=== PATIENT | male | born 1965 | race Caucasian/White ===

== ENCOUNTER 2017-12-31 14:06 | Emergency (ER) | payer OTHER ==
[~2017-12-31] VITALS: Ht 177.8 cm; Wt 99.8 kg
[~2017-12-31 14:06] MED LIST: ALBU90OI INH; AMOX500 PO; CEPH500 PO; CODGUAEL PO; DOXY100 PO; ERYT.5TO OD; HYDACE5 PO; IBUP200; LISI20 PO; METR500 PO; OXYACE5T PO; PENVK250 PO; PENVK500 PO; SPACER IH; SULTRIDS PO; SULTRISS PO; TRAM50 PO; TRIA55OI
[2017-12-31] MEDS ORDERED: RANI150 PO (14:50)
[2017-12-31] MEDS ORDERED: CITA20 PO (14:50)
[2017-12-31] MEDS ORDERED: LISI20 PO (14:50)
[2017-12-31] MEDS ORDERED: LEVE500 PO (14:50)
[2017-12-31] MEDS ORDERED: DIAZ5 PO (14:51)
[2017-12-31] MEDS ORDERED: BENADRYL25 MG PO (14:51)
[2017-12-31] MEDS ORDERED: ASPI81CH PO (14:51)
[2017-12-31] MEDS ORDERED: ASCO500 PO (14:52)
[2017-12-31] MEDS ORDERED: GABA300 PO (14:52)
[2017-12-31] MEDS ORDERED: VITAMIN D-32000 UNIT PO (14:53)
[2017-12-31] MEDS ORDERED: FENO67 PO (14:53)
[2017-12-31] MEDS ORDERED: BUTALB-ACETAMI1 EACH PO (14:53)
[2017-12-31] MEDS ORDERED: IBUPROFEN200 MG PO (14:54)
[2017-12-31 15:02] LABS: BASOPHILS ABSOLUTE AUTO 0.15 K/mm3 (0.00-0.23); BASOPHILS PERCENT AUTO 2 % (0-2); EOSINOPHILS ABSOLUTE AUTO 0.72 K/mm3 (0.00-0.68); EOSINOPHILS PERCENT AUTO 8 % (0-6); Hematocrit 48.9 % (37.0-53.0); Hemoglobin 16.4 g/dL (13.5-17.5); IMMATURE GRAN ABSOLUTE AUTO 0.01 K/mm3 (0.00-0.10); IMMATURE GRAN PERCENT AUTO 0 % (0-1); LYMPHOCYTES ABSOLUTE AUTO 2.86 K/mm3 (0.84-5.20); LYMPHOCYTES PERCENT AUTO 33 % (21-46); MONOCYTES ABSOLUTE AUTO 0.63 K/mm3 (0.16-1.47); MONOCYTES PERCENT AUTO 7 % (4-13); Mean Corpuscular HGB 29.3 pg (26.0-34.0); Mean Corpuscular HGB Conc 33.5 g/dL (31.5-36.5); Mean Corpuscular Volume 87 fL (80-100); Mean Platelet Volume 9.9 fL (9.1-12.4); NEUTROPHILS ABSOLUTE AUTO 4.35 K/mm3 (1.96-9.15); NEUTROPHILS PERCENT AUTO 50 % (41-73); Platelet Count 272 K/mm3 (150-400); RDW Standard Deviation 38.5 fL (35.1-46.3); White Blood Cell Count 8.72 K/mm3 (4.00-11.30)
[2017-12-31 15:24] LABS: Alanine Aminotransfer (ALT/SGP 48 U/L (12-78); Albumin, Blood 4.4 g/dL (3.4-5.0); Albumin/Globulin Ratio 1.2 (0.8-1.8); Alk Phos 48 U/L (50-136); Anion Gap 6 mmol/L (6-16); Aspartate Aminotrans (AST/SGOT 32 U/L (12-37); Bilirubin, Total 0.5 mg/dL (0.1-1.0); Blood Urea Nitrogen 19 mg/dL (8-24); Bun/Creatinine Ratio 15.8 (12.0-20.0); CO2, Blood 26 mmol/L (21-32); Calcium, Blood 9.3 mg/dL (8.5-10.1); Chloride, Blood 107 mmol/L (98-108); Globulin, Blood 3.7 g/dL (2.2-4.0); Glomerular Filtration Rate >60 (60-); Glucose, Blood 100 mg/dL (70-99); Potassium, Blood 4.4 mmol/L (3.5-5.5); Sodium, Blood 139 mmol/L (136-145); Total Protein, Blood 8.1 g/dL (6.4-8.2)
[2017-12-31] MEDS ORDERED: HYDR25SUP PR (16:05)
== END 2017-12-31 16:20 | disposition home or self-care (01) ==
LOC: ER 14:06
PROVIDERS: Emergency Medicine
DX: K64.8 Other hemorrhoids (principal); K21.9 Gastro-esophageal reflux disease without esophagitis; I10 Essential (primary) hypertension; G40.909 Epilepsy, unspecified, not intractable, without status epilepticus; Z79.899 Other long term (current) drug therapy; Z79.82 Long term (current) use of aspirin
CPT/HCPCS: 46600; 80053; 82272; 85025; 86850; 86900; 86901; 99284

== ENCOUNTER 2018-02-15 08:30 | Day surgery (SDC) | payer OTHER ==
[~2018-02-15] VITALS: Ht 177.8 cm; Wt 95.7 kg
[~2018-02-15 08:30] MED LIST changes: +ASCO500 PO; +ASPI81CH PO; +BENADRYL25 MG PO; +BUTALB-ACETAMI1 EACH PO; +CITA20 PO; +DIAZ5 PO; +FENO67 PO; +GABA300 PO; +HYDR25SUP PR; +IBUPROFEN200 MG PO; +LEVE500 PO; +RANI150 PO; +VITAMIN D-32000 UNIT PO
== END 2018-02-15 12:00 | disposition home or self-care (01) ==
LOC: ORSCMMR 08:30 → ORD 09:30 → ORSCMMR 09:30
PROVIDERS: Internal Medicine Gastroenterology
PROC: 0DBN8ZX Excision of Sigmoid Colon, Via Natural or Artificial Opening Endoscopic, Diagnostic (ICD-10-PCS; principal; 2018-02-15 09:30)
DX: K62.5 Hemorrhage of anus and rectum (principal); D12.5 Benign neoplasm of sigmoid colon; K57.30 Diverticulosis of large intestine without perforation or abscess without bleeding; K64.4 Residual hemorrhoidal skin tags; I10 Essential (primary) hypertension; K21.9 Gastro-esophageal reflux disease without esophagitis; G40.89 Other seizures; Z79.899 Other long term (current) drug therapy
CPT/HCPCS: 88305; J7030